=== PATIENT | female | born 1955 | race African-American/Black ===

== ENCOUNTER 2019-07-04 06:08 | Emergency (ER) | payer BC ==
--- OUTSIDE RECORDS SUMMARY | 2019-07-04 06:10 | XMS REPORT ---
:1955 Author Organization [facility] Address [address] [place] [address] Care Team Providers Name Role Phone Unavailable Unavailable Unavailable Problems This patient has no known problems. Allergies, Adverse Reactions, Alerts This patient has no known allergies or adverse reactions. Medications This patient has no known medications. Results Test Description Test Time Test Comments Text Results Atomic Results Result Comments MM, U/S, 2018-10-22 Diagnostic workup per #[id number] BREAST, 11:39:00 radiologist?->YesReason for - MM, U/S, BREAST, BILATERAL Exam:->Z85.3 BILATERALULTRASOUND OF BOTH BREASTS: 10/22/2018 Technique: Bilateral whole breast color flow and real-time ultrasound including evaluation of all four quadrants and the retroareolar regions of both breasts and bilateral axilla was performed. There is no suspicious cystic or solid sonographic finding. IMPRESSION: NEGATIVE There is no sonographic evidence of malignancy. A 1 year screening mammogram is recommended. Emelyn Spann M.D. mc/:10/22/2018 11:39:06 Normal Exam Ultrasound BI-RADS: 1 Negative [id number] , DIGITAL 2018-10-22 Diagnostic workup per #[id number] MAMMO, 11:36:00 radiologist?->Yes Reason for - MM, DIGITAL MAMMO, DIAGNOSTIC, Exam:->Z85.3 DIAGNOSTIC, BILATERAL BILATERAL INCLUDING CADBILATERAL INCLUDING CAD DIGITAL DIAGNOSTIC MAMMOGRAM WITH CAD: 10/22/2018No prior exams were available for comparison. The tissue of both breasts is predominantly fatty. Current study was also evaluated with a Computer Aided Detection (CAD) system. The left breast has post-operative findings. No significant masses, calcifications, or other findings are seen in either breast. IMPRESSION: NEGATIVEThere is no mammographic evidence of malignancy. Emelyn Spann M.D., mc/florencio:10/22/2018 11:36:10 Systems Architecture Analyst: Coni SALDANA)(Roseline), [facility] Mammogram BI-RADS: 1 Negative G0204
[2019-07-04] MEDS ORDERED: LIDOCAINE 1% MPF 5 ML VIAL ONE (06:30)
[2019-07-04] MEDS ORDERED: TETANUS & DIPHTHERIA TOX,ADULT 0.5 ML VIAL ONE (06:34)
--- NOTE | 2019-07-04 07:08 | ER ---
Nurse's Notes [facility] Name: Marta Morrison Age: 63 yrs Sex: Female : 1955 Arrival Date: 07/04/2019 Time: 06:11 Bed 15 Private MD: Diagnosis: Laceration without foreign body of left hand Presentation: 07/04 06:17 Presenting complaint: Patient states: was cutting something last night when she wh accidentally cut her thumb. Laceration wound to left thumb without bleeding. Transition of care: patient was not received from another setting of care. Complicating Factors: There are no complicating factors for this patient. Onset of symptoms was July 04, 2019. Risk Assessment: Do you want to hurt yourself or someone else? Patient reports no desire to harm self or others. Initial Sepsis Screen: Does the patient meet any 2 criteria? No. Patient's initial sepsis screen is negative. Does the patient have a suspected source of infection? No. Patient's initial sepsis screen is negative. Care prior to arrival: None. 06:17 Method Of Arrival: Ambulatory 06:17 Acuity: ERICH 4 Historical: - Allergies: 06:21 No Known Allergies; - Home Meds: 06:21 Lisinopril Oral [Active]; levothyroxine oral [Active]; - PMHx: 06:21 Hypertension; breast Cancer; - PSHx: 06:21 Appendectomy; Lumpectomy; - Immunization history:: Adult Immunizations up to date. - Coronavirus screen:: The patient has NOT traveled to [place] in the past 14 days. - Social history:: Smoking status: Patient/guardian denies using. - Ebola Screening: : Patient negative for fever greater than or equal to 101.5 degrees Fahrenheit, and additional compatible Ebola Virus Disease symptoms Patient denies exposure to infectious person. Screenin:21 Abuse screen: Denies threats or abuse. Denies injuries from another. Nutritional screening: No deficits noted. Tuberculosis screening: No symptoms or risk factors identified. Fall Risk None identified. Assessment: 06:21 General: Appears in no apparent distress. Behavior is calm, cooperative, appropriate wh for age. Pain: Denies pain. Neuro: Level of Consciousness is awake, alert, obeys commands, Oriented to person, place, time, situation, Appropriate for age. Cardiovascular: Capillary refill < 3 seconds. Respiratory: Airway is patent Respiratory effort is even, unlabored, Respiratory pattern is regular, symmetrical. GI: Abdomen is flat, non-distended. : No signs and/or symptoms were reported regarding the genitourinary system. EENT: No signs and/or symptoms were reported regarding the EENT system. Derm: Skin is intact, is healthy with good turgor, Skin is pink, warm \T\ dry. normal. Musculoskeletal: Circulation, motion, and sensation intact. Injury Description: Laceration sustained to Left first web space is clean, 0.5 to 2.5 cm long, not bleeding. Vital Signs: 07:20 BP 145 / 78; Pulse 89; Resp 16; Temp 98.2; Pulse Ox 100% on R/A; Pain 0/10; iw 08:41 Pain 0/10; iw ED Course: 06:11 Patient arrived in ED. ds1 06:18 Lisette Strickland FNP-C is [facility]. kb 06:18 Omar Dela Cruz MD is Attending Physician. kb 06:19 Triage completed. wh 06:23 Arm band placed on right wrist. wh 06:23 Patient has correct armband on for positive identification. Bed in low position. Call light in reach. Side rails up X 1. Pulse ox on. NIBP on. 07:25 Chikis Loya, RN is Primary Nurse. iw 07:25 No provider procedures requiring assistance completed. Patient did not have IV access iw during this emergency room visit. Administered Medications: 06:33 Drug: Tetanus-Diphtheria Toxoid Adult 0.5 ml {Laboratory Veterinarian: Malhar. Exp: eb1 04/08/2021. Lot #: [id number]. } Route: IM; Site: right deltoid; 07:05 Drug: Lidocaine (1 %) 1 vials {Note: Administered by CRO Lisette strickland.} Volume: 5 ml; Route: Infiltration; Outcome: 07:07 Discharge ordered by . kb 07:26 Discharged to home ambulatory. iw 07:26 Condition: good 07:26 Discharge instructions given to patient, Instructed on discharge instructions, follow up and referral plans. Demonstrated understanding of instructions, follow-up care. 07:26 Patient left the ED. iw Signatures: Lisette Strickland FNP-C FNP-Ckb Sanford, Demi ds1 Chikis Loya, RN RN iw Yumiko, Shelia López, RN RN eb1
--- NOTE | 2019-07-04 07:09 | EDPHYS ---
Physician Documentation [facility] Name: Marta Morrison Age: 63 yrs Sex: Female : 1955 Arrival Date: 07/04/2019 Time: 06:11 Bed 15 Private MD: ED Physician Omar Dela Cruz HPI: 07/04 06:29 This 63 yrs old Black Female presents to ER via Ambulatory with complaints of kb Laceration To Hand. 06:29 The patient has a laceration related to: cooking, from a knife, occurred at home, and kb there are no complicating factors. The injury was accidental. The laceration(s) is(are) located on the Left first web space. Onset: The symptoms/episode began/occurred last night. Associated signs and symptoms: The patient has no apparent associated signs or symptoms. The patient has not experienced similar symptoms in the past. The patient has not recently seen a physician. Pt reports she was preparing food and accidentally cut her thumb. States she didn't want to come in, but it keeps opening back up every time she moves her thumb. . Historical: - Allergies: 06:21 No Known Allergies; - Home Meds: 06:21 Lisinopril Oral [Active]; levothyroxine oral [Active]; - PMHx: 06:21 Hypertension; breast Cancer; - PSHx: 06:21 Appendectomy; Lumpectomy; - Immunization history:: Adult Immunizations up to date. - Coronavirus screen:: The patient has NOT traveled to [place] in the past 14 days. - Social history:: Smoking status: Patient/guardian denies using. - Ebola Screening: : Patient negative for fever greater than or equal to 101.5 degrees Fahrenheit, and additional compatible Ebola Virus Disease symptoms Patient denies exposure to infectious person. ROS: 06:22 Constitutional: Negative for fever, chills, and weight loss, Neck: Negative for injury, kb pain, and swelling, Cardiovascular: Negative for chest pain, palpitations, and edema, Respiratory: Negative for shortness of breath, cough, wheezing, and pleuritic chest pain, Abdomen/GI: Negative for abdominal pain, nausea, vomiting, diarrhea, and constipation, Back: Negative for injury and pain, MS/Extremity: Negative for injury and deformity, Neuro: Negative for headache, weakness, numbness, tingling, and seizure. 06:22 Skin: Positive for laceration(s). Exam: 06:28 Constitutional: This is a well developed, well nourished patient who is awake, alert, kb and in no acute distress. Head/Face: Normocephalic, atraumatic. Neck: Trachea midline, no thyromegaly or masses palpated, and no cervical lymphadenopathy. Supple, full range of motion without nuchal rigidity, or vertebral point tenderness. No Meningismus. Chest/axilla: Normal chest wall appearance and motion. Nontender with no deformity. No lesions are appreciated. Cardiovascular: Regular rate and rhythm with a normal S1 and S2. No gallops, murmurs, or rubs. Normal PMI, no JVD. No pulse deficits. Respiratory: Lungs have equal breath sounds bilaterally, clear to auscultation and percussion. No rales, rhonchi or wheezes noted. No increased work of breathing, no retractions or nasal flaring. Abdomen/GI: Soft, non-tender, with normal bowel sounds. No distension or tympany. No guarding or rebound. No evidence of tenderness throughout. MS/ Extremity: Pulses equal, no cyanosis. Neurovascular intact. Full, normal range of motion. Neuro: Awake and alert, GCS 15, oriented to person, place, time, and situation. Cranial nerves II-XII grossly intact. Motor strength 5/5 in all extremities. Sensory grossly intact. Cerebellar exam normal. Normal gait. 06:28 Skin: injury, laceration(s), the wound is approximately 2.5 cm(s), of the Left first web space, that can be described as clean, no foreign body, linear, without bleeding. Vital Signs: 07:20 BP 145 / 78; Pulse 89; Resp 16; Temp 98.2; Pulse Ox 100% on R/A; Pain 0/10; iw 08:41 Pain 0/10; iw Laceration: 07:06 Wound Repair of 2.5cm ( 1.0in ) subcutaneous laceration to Left first web space. Linear kb shaped.. Distal neuro/vascular/tendon intact. Anesthesia: Wound infiltrated with 2 mls of 1% lidocaine. Wound prep: Extensive cleansing with hibiclenz by me, Wound irrigation with saline by me. Skin closed with 3 4-0 Prolene using interrupted sutures and sterile technique. Patient tolerated well. MDM: 06:18 Patient medically screened. kb 06:21 Data reviewed: vital signs, nurses notes. Data interpreted: Pulse oximetry: on room air kb is 100 %. Interpretation: normal. 07:06 Counseling: I had a detailed discussion with the patient and/or guardian regarding: the kb historical points, exam findings, and any diagnostic results supporting the discharge/admit diagnosis, the need for outpatient follow up, a family practitioner, to return to the emergency department if symptoms worsen or persist or if there are any questions or concerns that arise at home. 07:07 ED course: Pt educated not to hyperextend left thumb due to area of laceration and kb increased tension if hyperextended. . 07/04 06:21 Order name: Prolene, Sutures; Complete Time: 06:27 kb 07/04 06:21 Order name: Dressing - Wound; Complete Time: 06:27 kb 07/04 06:21 Order name: Gloves, Sterile; Complete Time: 06:27 kb 07/04 06:21 Order name: Setup Suture Tray; Complete Time: 06:27 kb Administered Medications: 06:33 Drug: Tetanus-Diphtheria Toxoid Adult 0.5 ml {Clerk Analyst: ScribeStorm. Exp: eb1 04/08/2021. Lot #: [id number]. } Route: IM; Site: right deltoid; 07:05 Drug: Lidocaine (1 %) 1 vials {Note: Administered by STONE UNLOADER Lisette strickland.} Volume: 5 ml; wh Route: Infiltration; Disposition: 07/04/19 07:07 Discharged to Home. Impression: Laceration without foreign body of left hand. - Condition is Stable. - Discharge Instructions: Laceration Care, Adult, [id number]. - Medication Reconciliation Form, Thank You Letter, Antibiotic Education, Prescription Opioid Use form. - Follow up: Emergency Department; When: As needed; Reason: Worsening of condition. Follow up: Private Physician; When: 2 - 3 days; Reason: Recheck today's complaints, Continuance of care, Re-evaluation by your physician. Addendum: 07/10/2019 19:00 Co-signature as Attending Physician, Omar ochoa Signatures: Lisette Strickland, ALVERTO-Zaina DEL TORO-Omar Carrasco MD MD pkl Williams, Irene, RN RN iw Lauren Calderon Emily RN RN eb1 Corrections: (The following items were deleted from the chart) 07/04 07:26 07:07 07/04/2019 07:07 Discharged to Home. Impression: Laceration without foreign body iw of left hand. Condition is Stable. Forms are Medication Reconciliation Form, Thank You Letter, Antibiotic Education, Prescription Opioid Use. Follow up: Emergency Department; When: As needed; Reason: Worsening of condition. Follow up: Private Physician; When: 2 - 3 days; Reason: Recheck today's complaints, Continuance of care, Re-evaluation by your physician. kb
== END 2019-07-04 07:26 | disposition home or self-care (01) ==
LOC: ER 06:08
PROC: 0JQK0ZZ Repair Left Hand Subcutaneous Tissue and Fascia, Open Approach (ICD-10-PCS; principal; 2019-07-04)
DX: S61.412A Laceration without foreign body of left hand, initial encounter (principal); W26.0XXA Contact with knife, initial encounter; Y93.G1 Activity, food preparation and clean up; Y92.000 Kitchen of unspecified non-institutional (private) residence as the place of occurrence of the external cause; Z23 Encounter for immunization; Z85.3 Personal history of malignant neoplasm of breast; I10 Essential (primary) hypertension
CPT/HCPCS: 90471; 90714; 99283

== ENCOUNTER 2019-07-13 20:06 | Emergency (ER) | payer BC ==
--- OUTSIDE RECORDS SUMMARY | 2019-07-13 20:08 | XMS REPORT ---
:1955 [facility] Address [address] [place] [address] Care Team Providers Name Role Phone Unavailable Unavailable Unavailable Problems This patient has no known problems. Allergies, Adverse Reactions, Alerts This patient has no known allergies or adverse reactions. Medications This patient has no known medications. Results Test Description Test Time Test Comments Text Results Atomic Results Result Comments MM, U/S, 2018-10-22 Diagnostic workup per #[id number] BREAST, 11:39:00 radiologist?->YesReason for - MM, U/S, [...] 11:39:06 Normal Exam Ultrasound BI-RADS: 1 Negative [id number] , DIGITAL 2018-10-22 Diagnostic workup per #[id number] MAMMO, 11:36:00 radiologist?->Yes Reason for - MM, [...] of malignancy. Emelyn Spann M.D., mc/florencio:10/22/2018 11:36:10 Structural Biologist: Coni SALDANA)(Roseline), [facility] Mammogram BI-RADS: 1 Negative [id number]
--- NOTE | 2019-07-13 20:27 | ER ---
Nurse's Notes [facility] Name: Marta Morrison Age: 63 yrs Sex: Female : 1955 Arrival Date: 07/13/2019 Time: 20:07 Bed 17 Private MD: Diagnosis: Encounter for removal of sutures Presentation: 07/12 20:10 Chief complaint: Patient states: Lac repair done on the Jun. Schedule for ca1 removal today. Appears clean, dry and intact. Coronavirus screen: The patient has NOT traveled to a country currently being monitored by the [facility] within the last 14 days. The patient has NOT had contact with any known and/or suspected case of coronavirus. Ebola Screen: Patient negative for fever greater than or equal to 101.5 degrees Fahrenheit, and additional compatible Ebola Virus Disease symptoms Patient denies exposure to infectious person. Patient denies travel to an Ebola-affected area in the 21 days before illness onset. No symptoms or risks identified at this time. Initial Sepsis Screen: Does the patient meet any 2 criteria? No. Patient's initial sepsis screen is negative. Does the patient have a suspected source of infection? No. Patient's initial sepsis screen is negative. Risk Assessment: Do you want to hurt yourself or someone else? Patient reports no desire to harm self or others. Onset of symptoms was July 13, 2019. 20:10 Method Of Arrival: Ambulatory ca1 20:10 Acuity: ERICH 5 ca1 Historical: - Allergies: 20:12 No Known Allergies; ca1 - Home Meds: 20:12 levothyroxine oral [Active]; lisinopril Oral [Active]; ca1 - PMHx: 20:12 Hypertension; breast cancer; ca1 - PSHx: 20:12 Appendectomy; Lumpectomy; ca1 - Immunization history:: Adult Immunizations up to date, Last tetanus immunization: up to date Flu vaccine is not up to date. - Social history:: Smoking status: Patient denies any tobacco usage or history of. Screenin:14 Abuse screen: Denies threats or abuse. Nutritional screening: No deficits noted. ea Tuberculosis screening: No symptoms or risk factors identified. Fall Risk None identified. Assessment: 20:20 General: Appears in no apparent distress. Behavior is appropriate for age. Neuro: Level ea of Consciousness is awake, alert, obeys commands, Oriented to person, place, time. Cardiovascular: Patient's skin is warm and dry. Respiratory: Airway is patent Respiratory effort is even, unlabored, Respiratory pattern is regular, symmetrical. Musculoskeletal: Circulation, motion, and sensation intact. Vital Signs: 20:10 BP 127 / 79; Pulse 80; Resp 16 S; Temp 97.3(TE); Pulse Ox 95% on R/A; Weight 79.38 kg ca1 (R); Height 5 ft. 3 in. (160.02 cm); Pain 0/10; 20:10 Body Mass Index 31.00 (79.38 kg, 160.02 cm) ca1 ED Course: 20:07 Patient arrived in ED. cl3 20:12 Triage completed. ca1 20:12 Arm band placed on right wrist. ca1 20:14 Sharron Briones, RN is Primary Nurse. ea 20:14 Patient has correct armband on for positive identification. Bed in low position. Call ea light in reach. 20:18 Lisette Strickland [facility]-C [facility] kb 20:18 Keegan Steel MD is Attending Physician. kb 20:27 No provider procedures requiring assistance completed. Patient did not have IV access ea during this emergency room visit. Administered Medications: No medications were administered Outcome: 20:25 Discharge ordered by MD. kb 20:28 Discharged to home ambulatory. ea 20:28 Condition: stable 20:28 Discharge instructions given to patient, Instructed on discharge instructions, Demonstrated understanding of instructions. 20:28 Patient left the ED. ea Signatures: Lisette Strickland FNP-C FNP-Sharron Christian RN RN ea Acob, Cheryl, RN RN ca1 Lewis, Charde cl3
--- NOTE | 2019-07-13 20:27 | EDPHYS ---
Physician Documentation [facility] Name: Marta Morrison Age: 63 yrs Sex: Female : 1955 Arrival Date: 07/13/2019 Time: 20:07 Bed 17 Private MD: ED Physician Keegan Steel HPI: 07/12 20:23 This 63 yrs old Black Female presents to ER via Ambulatory with complaints of Suture kb Removal. 20:23 The patient has sutures on the Left first web space. Previous treatment: The patient kb was initially treated 9 day(s) ago, the care was rendered at [facility]. Sutures/juancarlos progress: The patient has no c/o's. The wound is well-healing with no redness, swelling, discharge, or dehiscence reported. The patient has not experienced similar symptoms in the past. The patient has not recently seen a physician. Historical: - Allergies: 20:12 No Known Allergies; ca1 - Home Meds: 20:12 levothyroxine oral [Active]; lisinopril Oral [Active]; ca1 - PMHx: 20:12 Hypertension; breast cancer; ca1 - PSHx: 20:12 Appendectomy; Lumpectomy; ca1 - Immunization history:: Adult Immunizations up to date, Last tetanus immunization: up to date Flu vaccine is not up to date. - Social history:: Smoking status: Patient denies any tobacco usage or history of. ROS: 20:23 Constitutional: Negative for fever, chills, and weight loss, Cardiovascular: Negative kb for chest pain, palpitations, and edema, Respiratory: Negative for shortness of breath, cough, wheezing, and pleuritic chest pain, Abdomen/GI: Negative for abdominal pain, nausea, vomiting, diarrhea, and constipation, MS/Extremity: Negative for injury and deformity, Neuro: Negative for headache, weakness, numbness, tingling, and seizure. 20:23 Skin: Positive for sutures in place. Exam: 20:23 Constitutional: This is a well developed, well nourished patient who is awake, alert, kb and in no acute distress. Head/Face: Normocephalic, atraumatic. Chest/axilla: Normal chest wall appearance and motion. Nontender with no deformity. No lesions are appreciated. Cardiovascular: Regular rate and rhythm with a normal S1 and S2. No gallops, murmurs, or rubs. Normal PMI, no JVD. No pulse deficits. Respiratory: Lungs have equal breath sounds bilaterally, clear to auscultation and percussion. No rales, rhonchi or wheezes noted. No increased work of breathing, no retractions or nasal flaring. Abdomen/GI: Soft, non-tender, with normal bowel sounds. No distension or tympany. No guarding or rebound. No evidence of tenderness throughout. MS/ Extremity: Pulses equal, no cyanosis. Neurovascular intact. Full, normal range of motion. Neuro: Awake and alert, GCS 15, oriented to person, place, time, and situation. Cranial nerves II-XII grossly intact. Motor strength 5/5 in all extremities. Sensory grossly intact. Cerebellar exam normal. Normal gait. 20:23 Skin: Wound recheck: Suture laceration closure: the wound is healing well, the edges are well approximated, no evidence of dehiscence, no drainage, no erythema, no swelling. Vital Signs: 20:10 BP 127 / 79; Pulse 80; Resp 16 S; Temp 97.3(TE); Pulse Ox 95% on R/A; Weight 79.38 kg ca1 (R); Height 5 ft. 3 in. (160.02 cm); Pain 0/10; 20:10 Body Mass Index 31.00 (79.38 kg, 160.02 cm) ca1 Procedures: 20:23 Suture/Staple removal: Removed 3 sutures, from Left first web space, site appears well kb healed, Patient tolerated well. MDM: 20:19 Patient medically screened. kb 20:24 Data reviewed: vital signs, nurses notes. Data interpreted: Pulse oximetry: on room air kb is 95 %. Interpretation: normal. Counseling: I had a detailed discussion with the patient and/or guardian regarding: the historical points, exam findings, and any diagnostic results supporting the discharge/admit diagnosis, the need for outpatient follow up, a family practitioner, to return to the emergency department if symptoms worsen or persist or if there are any questions or concerns that arise at home. Administered Medications: No medications were administered Disposition: 07/13 06:03 Co-signature as Attending Physician, Keegan Steel MD I agree with the assessment and tw4 plan of care. Disposition: 07/13/19 20:25 Discharged to Home. Impression: Encounter for removal of sutures. - Condition is Stable. - Discharge Instructions: Suture Removal, Care After. - Medication Reconciliation Form, Thank You Letter, Antibiotic Education, Prescription Opioid Use form. - Follow up: Emergency Department; When: As needed; Reason: Worsening of condition. Follow up: Private Physician; When: 2 - 3 days; Reason: Recheck today's complaints, Continuance of care, Re-evaluation by your physician. Signatures: Lisette Strickland FNP-C FNP-Ckb Antunez, Elena, RN RN Keegan Sandoval MD MD tw4 Vicki West RN RN ca1 Corrections: (The following items were deleted from the chart) 07/12 20:28 20:25 07/13/2019 20:25 Discharged to Home. Impression: Encounter for removal of ea sutures. Condition is Stable. Forms are Medication Reconciliation Form, Thank You Letter, Antibiotic Education, Prescription Opioid Use. Follow up: Emergency Department; When: As needed; Reason: Worsening of condition. Follow up: Private Physician; When: 2 - 3 days; Reason: Recheck today's complaints, Continuance of care, Re-evaluation by your physician. kb
== END 2019-07-13 20:28 | disposition home or self-care (01) ==
LOC: ER 20:06
DX: Z48.02 Encounter for removal of sutures (principal); I10 Essential (primary) hypertension; Z85.3 Personal history of malignant neoplasm of breast
CPT/HCPCS: 99281

== ENCOUNTER 2020-09-09 19:23 | Emergency (ER) | payer OTHER ==
--- OUTSIDE RECORDS SUMMARY | 2020-09-09 19:26 | XMS REPORT | Continuity of Care Document ---
:1955 Author Organization [facility] t Address [address] [place] [address] Care Team Providers Name Role Phone Mel DIAZ Primary Care Physician Brent DIAZ Attending Clinician Kelechi Hernandez Attending Clinician Pcp, Does Not Have A Attending Clinician Problems This patient has no known problems. Allergies, Adverse Reactions, Alerts This patient has no known allergies or adverse reactions. Social History Social Habit Start Date Stop Date Quantity Comments Source Sex Assigned At [facility] Medications This patient has no known medications. Procedures This patient has no known procedures. Plan of Care Planned Activity Planned Date Details Comments Source Future Scheduled 2020-10-[address] [facility] - Test 00:00:00 malignant neoplasm of [facility] breast (procedure) [code = 992539294] Future Scheduled 2020-01-10 INFLUENZA VACCINE (#1) [facility] - Test 00:00:00 [code = INFLUENZA Medical Ce nter VACCINE (#1)] Future Scheduled 2019-12-09 PNEUMOCOCCAL 65+ YRS [facility] - Test 00:00:00 (1 of 1 - [facility] [id number] PCV13) [code = PNEUMOCOCCAL 65+ YRS (1 of 1 - [id number] PCV13)] Future Scheduled 1999-12-[address] [facility] - Test 00:00:00 (procedure) [code = [facility] [id number]] Future Scheduled 1975-12-[address] [facility] - Test 00:00:[address] [facility] cervix (procedure) [code = 688855177] Future Scheduled [address] [facility] - Test 00:00:[address] [facility] colon (procedure) [code = 315196700] Encounters Start End Encounter Admission Attending Care Care Encounter Source Date/Time Date/Time Type Type Clinicians Facility Department ID 2020-08-16 2020-08-16 Office Mercedes Kennedy [facility] [id number] 13:36:53 14:06:53 Visit AMBULATOR 350.1.13.21 Y [id number] 2020-06-29 2020-06-29 Outpatient CHERI Hernandez [id number] 14:30:00 23:59:59 Joaquin 06 Kelechi 2020-06-18 2020-06-18 [facility] [id number] 12:50:41 16:41:33 Visit AMBULATOR 350.1.13.21 Y [id number] 2020-04-24 2020-04-24 Outpatient CHERI Hernandez [id number] 08:15:00 23:59:59 Joaquin 05 Kelechi 2020-04-16 2020-04-16 Outpatient CHERI Hernandez [id number] 10:45:00 23:59:59 Joaquin 04 Kelechi 2020-04-13 2020-04-13 Telephone [facility] [id number] 00:00:00 00:00:00 Patient OZZY 350.1.13.10 [facility] [id number] Have A [id number] 2020-03-28 2020-03-28 Outpatient CHERI Hernandez [id number] 10:30:00 10:30:00 Joaquin 03 Kelechi 2019-12-16 2019-12-17 Outpatient CHERI ALONZO [id number] 08:16:12 23:59:59 2019-11-22 2019-11-22 Outpatient CHERI Hernandez [id number] 15:00:00 23:59:59 Joaquin 02 Kelechi 2019-11-22 2019-11-22 Outpatient CHERI Hernandez [id number] 15:00:00 15:00:00 Joaquin 00 Kelechi 2019-11-22 2019-11-22 Outpatient CHERI Hernandez [id number] 15:00:00 15:00:00 Joaquin 01 Kelechi Results Test Description Test Time Test Comments Results Result Sourc e Comments MM, U/S, BREAST, 2018-10-09 Diagnostic #[id number] BILATERAL 4 workup per - MM, U/S, BREAST, 11:39:00 radiologist?->Y BILATERALULTRASOUND OF esReason for BOTH BREASTS: 10/22/2018 Exam:->Z85.3 Technique: Bilateral whole breast color flow and real-time ultrasound including evaluation of all four quadrants and the retroareolar regions of both breasts and bilateral axilla was performed. There is no suspicious cystic or solid sonographic finding. IMPRESSION: NEGATIVE There is no sonographic evidence of malignancy. A 1 year screening mammogram is recommended. Emelyn Spann M.D. /:10/22/2018 11:39:06 Normal Exam Ultrasound BI-RADS: 1 Negative [id number] , DIGITAL 2018-10-09 Diagnostic #[id number] MAMMO, 4 workup per - MM, DIGITAL MAMMO, DIAGNOSTIC, 11:36:00 radiologist?->Y DIAGNOSTIC, BILATERAL BILATERAL es Reason for INCLUDING CADBILATERAL INCLUDING CAD Exam:->Z85.3 DIGITAL DIAGNOSTIC MAMMOGRAM WITH CAD: 10/22/2018No prior exams were available for comparison. The tissue of both breasts is predominantly fatty. Current study was also evaluated with a Computer Aided Detection (CAD) system. The left breast has post-operative findings. No significant masses, calcifications, or other findings are seen in either breast. IMPRESSION: NEGATIVEThere is no mammographic evidence of malignancy. Emelyn Spann M.D. /penrad:10/22/2018 11:36:10 Director Corporate Communications: Coni SALDANA)(Roseline), [facility] Mammogram BI-RADS: 1 Negative [id number]
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
[2020-09-09 23:16] VITALS: BP 158/93; TEMP 97.1; O2SAT 97
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
== END 2020-09-09 23:12 | disposition home or self-care (01) ==
LOC: ER 19:23
DX: R51.9 Headache, unspecified (principal); M54.5 Low back pain; V49.40XA Driver injured in collision with unspecified motor vehicles in traffic accident, initial encounter; Z85.3 Personal history of malignant neoplasm of breast; I10 Essential (primary) hypertension; E07.9 Disorder of thyroid, unspecified
CPT/HCPCS: 70450; 72131; 99283